=== PATIENT | female | born 1980 | race Caucasian/White ===

== ENCOUNTER 2025-04-07 09:10 | Emergency (ER) | payer MEDICAID ==
[~2025-04-07] VITALS: Ht 167.6 cm; Wt 123.7 kg
[2025-04-07 09:11] VITALS: BP 120/69; PULSE 87; TEMP 97.2; O2SAT 98
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
[2025-04-07 10:54] VITALS: RESP 16
[2025-04-07] MEDS: ketorolac trometh 30MG/ML vial 30 MG/ML VIAL IM ONE (10:54)
== END 2025-04-07 11:04 | disposition home or self-care (01) ==
LOC: ER 09:11
DX: R07.89 Other chest pain (principal); V89.2XXA Person injured in unspecified motor-vehicle accident, traffic, initial encounter; Y93.89 Activity, other specified; Y92.89 Other specified places as the place of occurrence of the external cause; Y99.8 Other external cause status
CPT/HCPCS: 71046; 96372; 99283; J1885